=== PATIENT | male | born 1980 | race Caucasian/White ===

== ENCOUNTER 2017-07-10 17:14 | Emergency (ER) | payer OTHER ==
[~2017-07-10] VITALS: Ht 172.7 cm; Wt 98.0 kg
[~2017-07-10 17:14] MED LIST: ACET-1256 PO
[2017-07-10 17:28] VITALS: TEMP 37.6; Ht 172.7 cm; Wt 98.0 kg
[2017-07-10] MEDS ORDERED: KETOROLAC TROMETHAMINE 60 MG/2 ML VIAL IM STA (18:11)
[2017-07-10] MEDS ORDERED: DIAZEPAM 5MG TAB PO ONE (18:15)
--- NOTE | 2017-07-10 18:21 | EMERGENCY ROOM VISIT NOTE ---
ED Visit Note First contact with patient: 17:59 CHIEF COMPLAINT: Low back pain HISTORY OF PRESENT ILLNESS: This 37-year-old male patient presents to the emergency department by private vehicle with his fiance complaining of pain in the low back which began 2 days ago. The pain was gradual in onset, is now constant and worse with movement. The patient notes the pain as constant aching with sharp shooting pains and a 9/10. The patient has taken Tylenol yesterday with no relief of the pain, he has not taken any medications for the pain today. The patient denies any loss of control of their bowel or bladder functions. There has been no leg numbness or weakness, and no change in sensation. No nausea or vomiting or abdominal pain. No chest pain or shortness of breath. The patient has had previous issues with back pain and reports a history of scoliosis, but denies any significant prior back injuries and denies back surgeries or injections. No dysuria or increased urinary frequency. Patient states that he has a physical job that requires him to do a lot of bending over, twisting movements, and heavy lifting, he feels he may have hurt his back while at work. Patient does note that he had been feeling constipated, and thought that this could be the cause of his back pain, as it has caused him issues in the past. He states that he was straining a lot to go to the bathroom today, moved his bowels twice, and states the second time when he wiped there was some blood on the toilet paper. He denies any blood mixed in with the stool. He does have a history of hemorrhoids. REVIEW OF SYSTEMS: A review of systems was performed with positives and pertinent negatives listed in the history of present illness. All other systems were reviewed and are negative. ALLERGIES: NKA MEDICATIONS: No medications PMH: No significant past medical or surgical history. SOCIAL HISTORY: Lives at home with family. He is a former smoker, denies alcohol and recreational drugs. PHYSICAL EXAM: VITALS: Vitals are noted on the nurse's note and reviewed by myself. Vital signs stable. GENERAL: Pleasant and cooperative, in no acute distress, but in obvious pain. Non-diaphoretic, well-developed well-nourished. SKIN: The skin was without rashes, erythema, edema, or bruising. Capillary refill less than 2 seconds. NECK: Supple without nuchal rigidity. No cervical spine tenderness. No paraspinous muscle tenderness. HEART: Regular rate and rhythm without murmurs gallops or rubs. Normal peripheral perfusion. No edema. LUNGS: Clear to auscultation bilaterally without wheezes, rales or rhonchi. ABDOMEN: Positive bowel sounds x 4. Normal tympanic percussion. Soft, nontender, without masses or organomegaly. Vora sign negative. Digital rectal exam was performed, noting small hemorrhoid at 9 o'clock position, no active bleeding and nontender to palpation. Small amount of what appears to be dried blood around the anus. Brown stool noted on exam, no gross blood, guaiac positive. Normal rectal tone. No internal hemorrhoids or fissures noted. MUSCULOSKELETAL: No muscle atrophy, erythema, or edema noted of the back. There is midline tenderness over the lumbar spinous processes L2 through L5. There is right sided tenderness over the lumbar paraspinous muscles, no left- sided tenderness. There is no tenderness over the thoracic spine and no paraspinous muscles. There are moderate muscle spasms present of the right lumbar paraspinous muscles. The patient is slow to move around with maximum tenderness with bending at the waist to sit up or lie down. Positive straight leg raise test on right. NEURO: Patient was alert and oriented to person place and time. Normal sensation to light and sharp touch. Deep tendon reflexes 2+ in the lower extremities. Dorsalis pedis pulse 2+ bilaterally. Strength 5/5 and equal in the bilateral lower extremities. IMAGING: L-SPINE MIN 4 VIEWS ROUTINE CLINICAL HISTORY: Lumbar spine pain with right-sided sciatica COMPARISON STUDY: No previous studies for comparison. FINDINGS: There are mild multilevel degenerative changes. No fractures or subluxations are visualized. No destructive lesions are evident. IMPRESSION: 1. No acute fractures or subluxations 2. Mild degenerative changes EMERGENCY DEPARTMENT COURSE: I examined the patient. Differential diagnosis includes lumbar sprain/strain, lumbar radiculopathy/sciatica, degenerative disc disease, herniated disc, vertebral fracture or subluxation, among others. No red flags on history or physical exam to suggest cauda equina syndrome. Digital rectal exam performed, normal rectal tone. There is a small, nontender hemorrhoid noted, but no active bleeding from the hemorrhoid and no gross blood on exam. I suspect patient may have caused some straining of his hemorrhoid during bowel movement, he was encouraged to follow-up with his PCP if his symptoms persist. X-ray imaging was done of the lumbar spine, which shows mild degenerative changes and no acute abnormalities. The patient was treated with IM Toradol, PO Valium and [place], with good improvement in his pain. Patient was updated on all results and plan for discharge, he was encouraged to follow- up with his primary care provider and to seek physical therapy. He was also provided with referral information for orthopedic spine surgery for follow-up. Rx for Mobic and Valium sent to the pharmacy and patient was educated regarding these medications. Patient was also given strict return precautions should his symptoms worsen, he verbalized understanding. Patient was discharged home with his in stable condition and ambulatory. Medication Reconciliation: I attest that I have personally reviewed the patient' s current medication list. Blood pressure screening: The patient was found to have an elevated blood pressure, which was felt to be situational. Patient discussed with Dr. Elliott, who agrees with my assessment and plan. Problem List Medical Problems: (1) Left foot pain Status: Resolved (2) Left foot pain Status: Resolved Surgical Problems: (1) S/P ACL reconstruction Status: Resolved Current/Historical Medications Scheduled Diazepam (Valium), 10 MG PO Q6H Ibuprofen (Advil), 400 MG PO PRN Meloxicam (Mobic), 15 MG PO DAILY Allergies Coded Allergies: No Known Allergies (Unverified , 03/28/15) Vital Signs Date Time Temp Pulse Resp B/P (MAP) Pulse Ox O2 Delivery O2 Flow Rate FiO2 07/10/17 21:11 72 18 128/83 96 Room Air 07/10/17 20:08 111/85 07/10/17 20:08 69 18 111/85 96 Room Air 07/10/17 18:57 73 18 124/91 99 Room Air 07/10/17 17:28 37.6 82 20 159/96 97 Room Air Medications Administered Medications (Trade) Dose Ordered Sig/Stefanie Route Start Time Stop Time Status Last Admin Dose Admin Ketorolac Tromethamine (Toradol Inj) 60 mg NOW STAT IM 07/10/17 18:11 07/10/17 18:14 DC 07/10/17 18:26 60 MG Diazepam (Valium Tab) 10 mg NOW ONCE PO 07/10/17 18:15 07/10/17 18:16 DC 07/10/17 18:26 10 MG Oxycodone/ Acetaminophen (Percocet 5-325mg Tab) 1 tab NOW ONCE PO 07/10/17 20:00 07/10/17 20:01 DC 07/10/17 20:09 1 TAB Departure Information Impression Primary Impression: Strain of lumbar region Additional Impression: Sciatica Dispostion Home / Self-Care Condition GOOD Prescriptions Diazepam (VALIUM) 10 Mg Tab 10 MG PO Q6H for 3 Days, #[address] WITH MEDICATION Prov: Namita Livingston, [employer] ATTEND[employer] 07/10/17 Meloxicam (MOBIC) 15 Mg Tab 15 MG PO DAILY for 14 Days, #14 TAB Prov: Namita Livingston, [employer] ATTENDANT 07/10/17 Referrals No Doctor, Assigned (PCP) Everett Yung, DO Patient Instructions ED Back Care Tips, ED Exercises Lumbar Muscles, ED Sciatica, ED Spasm Back No Trauma, [facility] Additional Instructions You have been evaluated and treated in the emergency department today for your low back pain. Take it easy for the next few days, no strenuous activity, heavy lifting, or bending/twisting motions, to allow your back to rest. Alternate heat and ice for comfort. After heat, you may do gentle stretching and massage to the low back. Mobic as prescribed once a day for the next two weeks to treat your pain and inflammation in your back. Do not take other NSAIDs (such as aspirin, ibuprofen , Aleve, naproxen, Advil, etc.) while you are taking this medication. Valium muscle relaxer as prescribed, as needed for muscle tightness and spasms. This may make you drowsy. Do not drive or drink alcohol while taking. You may also take extra strength Tylenol (500 mg) 2 tablets every 8 hours as needed for pain. Do not take more than 3000 mg in 24 hours. Follow up with your PCP in the next few days for further management. You may benefit from physical therapy. You may also follow-up with the orthopedic spine surgeon if your back pain is not improving. Please return to the ER if any problems with bowel or bladder function, numbness in your groin, high fevers, severe abdominal pain or worsening back pain, or if loss of feeling/movement of legs. Work Instructions Return To Work: 5 days Problem Qualifiers Primary Impression: Strain of lumbar region Encounter type: initial encounter Qualified Codes: S39.012A - Strain of muscle, fascia and tendon of lower back, initial encounter Additional Impression: Sciatica Laterality: right Qualified Codes: M54.31 - Sciatica, right side
[2017-07-10] MEDS ORDERED: IBUP-1050 PO (19:06)
--- NOTE | 2017-07-10 19:10 | DIAGNOSTIC IMAGING REPORT ---
L-SPINE MIN 4 VIEWS ROUTINE CLINICAL HISTORY: Lumbar spine pain with right-sided sciatica COMPARISON STUDY: No previous studies for comparison. FINDINGS: There are mild multilevel degenerative changes. No fractures or subluxations are visualized. No destructive lesions are evident. IMPRESSION: 1. No acute fractures or subluxations 2. Mild degenerative changes Electronically signed by: Daniel Fisher M.D. 07/10/2017 7:08 PM Dictated Date/Time: 07/10/2017 7:08 PM
[2017-07-10] MEDS ORDERED: OXYCODONE/ACETAMINOPHEN 5-325 TAB PO ONE (20:00)
[2017-07-10] MEDS ORDERED: DIAZ10TA3 PO (20:56)
[2017-07-10] MEDS ORDERED: MELO-84 PO (20:56)
[2017-07-10 21:11] VITALS: BP 128/83; PULSE 72; O2SAT 96
== END 2017-07-10 21:16 | disposition home or self-care (01) ==
LOC: C.EDB 17:15
DX: S39.012A Strain of muscle, fascia and tendon of lower back, initial encounter (principal); X58.XXXA Exposure to other specified factors, initial encounter; M54.31 Sciatica, right side; K64.9 Unspecified hemorrhoids; K59.00 Constipation, unspecified; M41.9 Scoliosis, unspecified; Z87.891 Personal history of nicotine dependence